=== PATIENT | male | born 1965 | race Caucasian/White ===

== ENCOUNTER 2022-10-02 19:10 | Observation (INO) | payer BC, OTHER ==
[2022-10-02 20:00] LABS: Absolute Neutrophil Ct (ANC) 4.16 x10^3/uL (1.4-6.9); Basophil (Absolute #) 0.06 x10^3/uL (0-0.4); Eosinophil % 1.7 % (0.00-5.0); Eosinophil (Absolute #) 0.11 x10^3/uL (0-0.5); Hematocrit 44.3 % (42-50); Hemoglobin 14.9 g/dL (12.5-18.0); Mean Cell Volume 86.2 fL (78-100); Mean Corpuscular Hgb Concent. 33.6 g/dL (32-36); Mean Platelet Volume 9.5 fL (7.5-11.0); Monocyte (Absolute #) 0.62 x10^3/uL (0.0-1.3); Monocytes % 9.7 % (0.0-12.0); Neutrophil % 65.4 % (36.0-66.0); Platelet Count 330 x10^3/uL (150-450); Red Blood Count 5.14 x10^6/uL (4.1-5.6); Red Cell Distribution Width 12.2 % (11.5-14.0); White Blood Count 6.4 x10^3/uL (4.0-10.5)
[2022-10-02 20:07] LABS: ALBUMIN 4.5 g/dL (3.5-5.0); ALKALINE PHOSPHATASE 90 U/L (38-126); ANION GAP 12.9 MEQ/L (5-15); BLOOD UREA NITROGEN 26 mg/dL (9-20); CHLORIDE 104 mmol/L (98-107); Calcium 9.5 mg/dL (8.4-10.2); Carbon Dioxide 24 mmol/L (22-30); Creatinine 1 0.88 mg/dL (0.66-1.25); EST GLOMERULAR FILTRATION RATE > 60.0 ML/MIN; Glucose 105 mg/dL (74-106); Potassium 4.5 mmol/L (3.5-5.1); SGOT/AST 59 U/L (17-59); SGPT/ALT 84 U/L (0-50); SODIUM 137 mmol/L (137-145)
[2022-10-02] MEDS ORDERED: BABY ASPIRIN 81 MG CHEW PO ONE (20:20)
[2022-10-02] MEDS ORDERED: NITRO-BID 2% UD PACKETS TOP ONE (20:21)
--- NOTE | 2022-10-02 20:24 | ERPHSYRPT ---
- History of Present Illness Time Seen by Provider: 10/02/22 19:20 Historian: patient Exam Limitations: no limitations Patient Subjective Stated Complaint: pt states he has been feeling pain and pressure in chest and back off and on for one week, states he has been feeling a bit short of breath. today the pain is worse and he rates it as 8/10 in chest and back Triage Nursing Assessment: pt arrived in er waiting, was taken back immediatly, 12 lead EKG shows NSR. Pt at this time is stating "my pain is in my back and chest, It's an 8/10. pt is alert and oriented sats are 99% on room air, BP is elevated at 170/107, pt appears anxious, and states the pain is coming and going. Physician History: Patient is a 57-year-old male presents to emergency department for evaluation of chest pain. Chest pain started today although he has been experiencing intermittent chest pain for the past several days. Chest pain tends to radiate to his left shoulder. Chest pain associated with nausea and diaphoresis. Patient states he does not follow-up with a doctor frequently and does not know his cholesterol level. Patient primarily receives his care at the [facility]. Patient also informs me that he is currently experiencing active cancer and is under treatment. Symptoms are intermittent. Symptoms are moderate in intensity. No specific worsening improving factors. Patient voices no other complaints or concerns at this time. Portions of this note were created with voice recognition technology. There may be grammatical, spelling, punctuation or sound alike errors Timing/Duration: today Activities at Onset: none Quality: aching Location: substernal Chest Pain Radiation: arm (Left arm) Severity of Pain-Max: moderate Severity of Pain-Current: mild Modifying Factors: Improves With: nothing Associated Symptoms: nausea, shortness of breath, diaphoresis Prior Chest Pain/Cardiac Workup: no prior chest pain Nitro Today/Relief: no nitro taken today Aspirin Treatment Today: no aspirin today Allergies/Adverse Reactions: No Known Drug Allergies Allergy (Unverified 10/02/22 19:25) Hx Influenza Vaccination/Date Given: No Hx Pneumococcal Vaccination/Date Given: No Travel Risk - International Travel Have you traveled outside of the country in past 3 weeks: No - Coronavirus Screening Are you exhibiting any of the following symptoms?: No Close contact with a COVID-19 positive Pt in past 14-21 Days: No - Vaccine Status Have you recieved a Covid-19 vaccination: Yes 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 - Review of Systems Constitutional: No Symptoms, No Fever, No Chills Eyes: No Symptoms Ears, Nose, & Throat: No Symptoms Respiratory: No Symptoms, No Cough, No Dyspnea Cardiac: No Symptoms, No Chest Pain, No Edema, No Syncope Abdominal/Gastrointestinal: No Symptoms, No Abdominal Pain, No Nausea, No Vomiting, No Diarrhea Genitourinary Symptoms: No Symptoms, No Dysuria Musculoskeletal: No Symptoms, No Back Pain, No Neck Pain Skin: No Symptoms, No Rash Neurological: No Symptoms, No Dizziness, No Focal Weakness, No Sensory Changes Psychological: No Symptoms Endocrine: No Symptoms Hematologic/Lymphatic: No Symptoms Immunological/Allergic: No Symptoms All Other Systems: Reviewed and Negative - Past Medical History Pertinent Past Medical History: Yes Male Reproductive Disorders: Prostate Cancer Other Medical History: has only one kidney - Past Surgical History Past Surgical History: Yes Genitourinary: Kidney Surgery Other Surgical History: kidney stones - Social History Smoking Status: Never smoker Exposure to second hand smoke: No Drug Use: none - Nursing Vital Signs Nursing Vital Signs: Initial Vital Signs Temperature 97.2 F 10/02/22 19:11 Pulse Rate 69 10/02/22 19:11 Respiratory Rate 20 10/02/22 19:11 Blood Pressure 170/107 10/02/22 19:11 O2 Sat by Pulse Oximetry 99 10/02/22 19:11 Pain Scale Pain Intensity 0 - Physical Exam General Appearance: no apparent distress, alert Eye Exam: PERRL/EOMI, eyes nml inspection Ears, Nose, Throat Exam: normal ENT inspection, moist mucous membranes Neck Exam: normal inspection, non-tender, supple, full range of motion Respiratory Exam: normal breath sounds, lungs clear, No respiratory distress Cardiovascular Exam: regular rate/rhythm, normal heart sounds Gastrointestinal/Abdomen Exam: soft, No tenderness, No mass Back Exam: normal inspection, No CVA tenderness, No vertebral tenderness Extremity Exam: normal inspection, normal range of motion Neurologic Exam: alert, oriented x 3, cooperative, normal mood/affect, sensation nml, No motor deficits Skin Exam: normal color, warm, dry SpO2 Interpretation: normal SpO2: 99 O2 Delivery: Room Air - Course Nursing assessment & vital signs reviewed: Yes EKG Interpreted by Me: RATE (60), Sinus Rhythm, NORMAL AXIS, NORMAL INTERVALS - Radiology Exams Chest X-ray Interpretation: Interpreted by me (Negative chest x-ray) - CT Exams Chest CT Interpretation: Tele-radiologist Report (Coronary artery atherosclerotic calcifications. 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 Care 10/02/22 19:56 Active EKG-ER Only STAT Care 10/02/22 19:55 Active IV Insertion STAT Care 10/02/22 19:55 Active Pulse Oximetry (ED) STAT Care 10/02/22 19:55 Active CHEST 1 VIEW (PORTABLE) Stat Exams 10/02/22 19:55 Taken CHEST WITH CONTRAST [CT] Stat Exams 10/02/22 22:10 Taken CBC W DIFF Stat Lab 10/02/22 19:45 Completed CMP Stat Lab 10/02/22 19:45 Completed D-DIMER QUANTITATIVE Stat Lab 10/02/22 20:16 Completed TROPONIN Q4H Lab 10/02/22 19:45 Completed TROPONIN Q4H Lab 10/03/22 00:00 Ordered TROPONIN Q4H Lab 10/03/22 04:00 Ordered UA W/RFX CULTURE Stat Lab 10/02/22 21:36 Completed Transfer Order Routine Transfer 10/02/22 Ordered Medication Summary Discontinued Medications Generic Name Dose Route Start Last Admin Trade Name Kiesha PRN Reason Stop Dose Admin Aspirin 324 mg 10/02/22 20:20 10/02/22 20:33 Aspirin 81 Mg Tab.Chew PO 10/02/22 20:21 324 mg STAT ONE Administration Aspirin Confirm 10/02/22 20:30 Aspirin 81 Mg Tab.Chew Administered 10/02/22 20:31 Dose 324 mg .ROUTE .STK-MED ONE Nitroglycerin 1 gm 10/02/22 20:21 10/02/22 20:33 Nitroglycerin 1 Gm Packet TOP 10/02/22 20:22 1 gm STAT ONE Administration Nitroglycerin Confirm 10/02/22 20:31 Nitroglycerin 1 Gm Packet Administered 10/02/22 20:32 Dose 1 gm .ROUTE .STK-MED ONE Lab/Rad Data: Laboratory Result Diagrams 10/02/22 19:45 10/02/22 19:45 Laboratory Results 10/02/22 10/02/22 10/02/22 Range/Units 21:36 20:40 20:16 WBC (4.0-10.5) x10^3/uL RBC (4.1-5.6) x10^6/uL Hgb (12.5-18.0) g/dL Hct (42-50) % MCV (78-100) fL MCH (26-32) pg MCHC (32-36) g/dL RDW (11.5-14.0) % Plt Count (150-450) x10^3/uL MPV (7.5-11.0) fL Gran % (36.0-66.0) % Immature Gran % (Auto) (0.00-0.4) % Nucleat RBC Rel Count (0.00-0.1) % Eos # (Auto) (0-0.5) x10^3/uL Immature Gran # (Auto) (0.00-0.03) x10^3u/L Absolute Lymphs (auto) (1.0-4.6) x10^3/uL Absolute Monos (auto) (0.0-1.3) x10^3/uL Absolute Nucleated RBC (0.00-0.01) x10^3u/L Lymphocytes % (24.0-44.0) % Monocytes % (0.0-12.0) % Eosinophils % (0.00-5.0) % Basophils % (0.0-0.4) % Absolute Granulocytes (1.4-6.9) x10^3/uL Basophils # (0-0.4) x10^3/uL D-Dimer 0.52 H (0.0-0.50) mg/L Sodium (137-145) mmol/L Potassium (3.5-5.1) mmol/L Chloride (98-107) mmol/L Carbon Dioxide (22-30) mmol/L Anion Gap (5-15) MEQ/L BUN (9-20) mg/dL Creatinine (0.66-1.25) mg/dL Estimated GFR ML/MIN Glucose (74-106) mg/dL Calcium (8.4-10.2) mg/dL Total Bilirubin (0.2-1.3) mg/dL AST (17-59) U/L ALT (0-50) U/L Alkaline Phosphatase (38-126) U/L Troponin I (0.000-0.034) ng/mL Serum Total Protein (6.3-8.2) g/dL Albumin (3.5-5.0) g/dL Urinalys Dipstick Clnc MAIN LAB Urine Color YELLOW (YELLOW) Urine Appearance CLEAR (CLEAR) Urine pH 5.5 (5-6) Ur Specific [place] 1.025 (1.005-1.025) POC Urine Protein Conf NEGATIVE (Negative) Urine Ketones NEGATIVE (NEGATIVE) Urine Nitrite NEGATIVE (NEGATIVE) Urine Bilirubin NEGATIVE (NEGATIVE) Urine Urobilinogen 0.2 (0-1) mg/dL Urine Leukocytes NEGATIVE (NEGATIVE) Urine WBC (Auto) NONE (0-5) /HPF Urine RBC (Auto) NONE (0-2) /HPF U Epithel Cells (Auto) NONE (FEW) /HPF Urine Bacteria (Auto) NONE (NEGATIVE) /HPF Urine RBC NEGATIVE (0-5) Nolberto/ul Urine Mucus (Auto) SLIGHT A (NEGATIVE) /HPF Ur Culture Indicated? NO Urine Glucose NEGATIVE (NEGATIVE) mg/dL Influenza Type A Ag NEGATIVE (NEGATIVE) Influenza Type B Ag NEGATIVE (NEGATIVE) RSV (PCR) NEGATIVE (Negative) SARS-CoV-2 (PCR) NEGATIVE (NEGATIVE) 10/02/22 10/02/22 10/02/22 Range/Units 19:45 19:45 19:45 WBC 6.4 (4.0-10.5) x10^3/uL RBC 5.14 (4.1-5.6) x10^6/uL Hgb 14.9 (12.5-18.0) g/dL Hct 44.3 (42-50) % MCV 86.2 (78-100) fL MCH 29.0 (26-32) pg MCHC 33.6 (32-36) g/dL RDW 12.2 (11.5-14.0) % Plt Count 330 (150-450) x10^3/uL MPV 9.5 (7.5-11.0) fL Gran % 65.4 (36.0-66.0) % Immature Gran % (Auto) 0.3 (0.00-0.4) % Nucleat RBC Rel Count 0.0 (0.00-0.1) % Eos # (Auto) 0.11 (0-0.5) x10^3/uL Immature Gran # (Auto) 0.02 (0.00-0.03) x10^3u/L Absolute Lymphs (auto) 1.40 (1.0-4.6) x10^3/uL Absolute Monos (auto) 0.62 (0.0-1.3) x10^3/uL Absolute Nucleated RBC 0.00 (0.00-0.01) x10^3u/L Lymphocytes % 22.0 L (24.0-44.0) % Monocytes % 9.7 (0.0-12.0) % Eosinophils % 1.7 (0.00-5.0) % Basophils % 0.9 (0.0-0.4) % Absolute Granulocytes 4.16 (1.4-6.9) x10^3/uL Basophils # 0.06 (0-0.4) x10^3/uL D-Dimer (0.0-0.50) mg/L Sodium 137 (137-145) mmol/L Potassium 4.5 (3.5-5.1) mmol/L Chloride 104 (98-107) mmol/L Carbon Dioxide 24 (22-30) mmol/L Anion Gap 12.9 (5-15) MEQ/L BUN 26 H (9-20) mg/dL Creatinine 0.88 (0.66-1.25) mg/dL Estimated GFR > 60.0 ML/MIN Glucose 105 (74-106) mg/dL Calcium 9.5 (8.4-10.2) mg/dL Total Bilirubin 1.20 (0.2-1.3) mg/dL AST 59 (17-59) U/L ALT 84 H (0-50) U/L Alkaline Phosphatase 90 (38-126) U/L Troponin I < 0.012 (0.000-0.034) ng/mL Serum Total Protein 8.0 (6.3-8.2) g/dL Albumin 4.5 (3.5-5.0) g/dL Urinalys Dipstick Clnc Urine Color (YELLOW) Urine Appearance (CLEAR) Urine pH (5-6) Ur Specific [place] (1.005-1.025) POC Urine Protein Conf (Negative) Urine Ketones (NEGATIVE) Urine Nitrite (NEGATIVE) Urine Bilirubin (NEGATIVE) Urine Urobilinogen (0-1) mg/dL Urine Leukocytes (NEGATIVE) Urine WBC (Auto) (0-5) /HPF Urine RBC (Auto) (0-2) /HPF U Epithel Cells (Auto) (FEW) /HPF Urine Bacteria (Auto) (NEGATIVE) /HPF Urine RBC (0-5) Nolberto/ul Urine Mucus (Auto) (NEGATIVE) /HPF Ur Culture Indicated? Urine Glucose (NEGATIVE) mg/dL Influenza Type A Ag (NEGATIVE) Influenza Type B Ag (NEGATIVE) RSV (PCR) (Negative) SARS-CoV-2 (PCR) (NEGATIVE) - Progress Progress: improved Air Movement: good Progress Note: Patient reassessed. Chest pain improved. Due to history of present illness and cardiac risk factors we will admit for ACS. D-dimer positive. CTA chest negative for PE. However significant at coronary atherosclerotic plaque observed. Case discussed with Dr. Abreu who accepts admission to observation. Plan of care discussed with patient. He agrees to admission [facility] for further evaluation and treatment. Portions of this note were created with voice recognition technology. There may be grammatical, spelling, punctuation or sound alike errors 10/03/22 00:02 Blood Culture(s) Obtained: No Antibiotics given: No Discussed with .: Clemente Will see patient in: hospital (observation) Counseled pt/family regarding: lab results, diagnosis, rad results - Departure Departure Disposition: Observation Clinical Impression: Coronary atherosclerosis due to calcified coronary lesion of kash[place] artery, Severe right hydronephrosis , Severe left hydronephrosis, Acute coronary syndrome, Chest pain Condition: Stable Critical Care Time: No Referrals: [facility]OS[facility],'S [Primary Care Provider] - Follow up/PCP as directed
[2022-10-02] MEDS ORDERED: BABY ASPIRIN 81 MG CHEW ONE (20:30)
[2022-10-02] MEDS ORDERED: NITRO-BID 2% UD PACKETS ONE (20:31)
[2022-10-02 21:27] LABS: INFLUENZA A NEGATIVE (NEGATIVE); INFLUENZA B NEGATIVE (NEGATIVE); RESPIRATORY SYNCTIAL VIRUS NEGATIVE (Negative); SARS-CoV-2 Xpert Express NEGATIVE (NEGATIVE)
[2022-10-02 22:11] LABS: Appearance CLEAR (CLEAR); Bilirubin NEGATIVE (NEGATIVE); Dipstick done @ ? MAIN LAB; Glucose NEGATIVE (NEGATIVE); Ketones NEGATIVE (NEGATIVE); Nitrite NEGATIVE (NEGATIVE); Ph 5.5 (5-6); Protein,Urine Dip NEGATIVE (Negative); RBC NEGATIVE Ery/ul (0-5); Specific Gravity 1.025 (1.005-1.025); Urobilinogen 0.2 mg/dL (0-1)
[2022-10-02 22:17] LABS: Mucus SLIGHT /HPF (NEGATIVE)
[2022-10-02 22:19] LABS: Urine Cultured Indicated? NO
[2022-10-03] MEDS ORDERED: TYLENOL 325 MG PO PRN (00:53)
[2022-10-03] MEDS ORDERED: Zofran 4 MG/2 ML VIAL IV PRN (00:53)
[2022-10-03] MEDS ORDERED: MILK OF MAGNESIA 30 ML PO PRN (00:53)
[2022-10-03] MEDS ORDERED: Senokot-S Tablet PO PRN (00:53)
[2022-10-03] MEDS: MAALOX ES 30 ML UNIT DOSE PO PRN ×2 (02:21→06:41)
[2022-10-03 05:19] LABS: Risk Ratio 5.3
--- NOTE | 2022-10-03 08:47 | XRAY ---
Indication: Chest pain and nausea. Elevated d-dimer. Multiple contiguous axial images obtained through the chest using 100 cc Isovue 370 contrast and PE protocol. Comparison: None Good opacification of the pulmonary arteries to include the lobar and segmental branches. No pulmonary embolus. Heart is not enlarged. Aorta minimally arteriosclerotic without aneurysm/dissection. No pathologic mediastinal/hilar lymphadenopathy. Lungs are inflated without suspicious pulmonary mass, infiltrate, or effusion. Bony thorax intact with mild/moderate degenerative changes throughout the spine. Limited upper abdomen demonstrates fatty liver, left renal atrophy with hydronephrosis, and incompletely visualized mild right hydronephrosis. Impression: 1. Negative pulmonary embolus. No acute cardiopulmonary abnormalities. 2. Hydronephrotic kidneys left greater than right with left renal atrophy. Comment: Preliminary interpretation made by C. No critical discrepancy.
--- NOTE | 2022-10-03 08:47 | XRAY ---
Indication: Chest pain. Comparison: None Portable chest inflated and clear. Heart not enlarged. Bony thorax intact with mild degenerative changes. Impression: Nonacute chest.
[2022-10-03 11:21] VITALS: BP 131/64; PULSE 73; O2SAT 95
--- NOTE | 2022-10-03 15:28 | PCM.SSS ---
History of Present Illness - Chief Complaint Chief Complaint: Chest pain for 3-4 hours History of Present Illness: is a 57 year old male.presents to emergency department for evaluation of chest pain. Chest pain started today although he has been experiencing intermittent chest pain for the past several days. Chest pain tends to radiate to his left shoulder. Chest pain associated with nausea and diaphoresis. Patient states he does not follow-up with a doctor frequently and does not know his cholesterol level. Patient primarily receives his care at the [facility]. Patient also informs me that he is currently experiencing active cancer and is under treatment. Symptoms are intermittent. Symptoms are moderate in intensity. No specific worsening improving factors. Patient voices no other complaints or concerns at this time. - Review of Systems Constitutional: No Fever, No Chills Eyes: No Symptoms Ears, Nose, & Throat: No Symptoms Respiratory: No Cough, No Short Of Breath Cardiac: Chest Pain, Other (diaphoresis), No Edema, No Syncope Abdominal/Gastrointestinal: Nausea, No Abdominal Pain, No Vomiting, No Diarrhea Genitourinary Symptoms: No Dysuria Musculoskeletal: No Back Pain, No Neck Pain Skin: No Rash Neurological: No Dizziness, No Focal Weakness, No Sensory Changes Psychological: No Symptoms Endocrine: No Symptoms Hematologic/Lymphatic: No Symptoms Immunological/Allergic: No Symptoms Medications & Allergies Home Medications: Home Medication List Losartan Potassium 50 mg [Cozaar 50 MG] 50 mg PO DAILY 10/03/22 [History Confirmed 10/03/22] Allergies/Adverse Reactions: Allergies Allergy/AdvReac Type Severity Reaction Status Date / Time No Known Drug Allergies Allergy Unverified 10/02/22 19:25 - Past Medical History Past Medical History: Yes Neurological History: No Pertinent History ENT History: No Pertinent History Cardiac History: Hypertension Respiratory History: No Pertinent History Endocrine Medical History: No Pertinent History Musculoskelatal History: No Pertinent History GI Medical History: No Pertinent History History: No Pertinent History Pyscho-Social History: No Pertinent History Male Reproductive Disorders: Prostate Cancer Comment: has only one kidney, prostate CA, - Past Surgical History Past Surgical History: Yes Neuro Surgical History: No Pertinent History Cardiac History: No Pertinent History Respiratory Surgery: No Pertinent History GI Surgical History: No Pertinent History Genitourinary Surgical Hx: Kidney Surgery Musculskeletal Surgical Hx: No Pertinent History Other Surgical History: kidney stones - Social History Smoking Status: Never smoker Exposure to second hand smoke: No Alcohol: Rarely Drug Use: none - Physical Exam Vital Signs: Vital Signs - 24 hr Temp Pulse Resp BP Pulse Ox 10/03/22 11:21 97.7 F 73 20 131/64 95 10/03/22 06:50 97.5 F 70 18 122/68 96 10/03/22 04:00 97.7 F 61 16 129/70 93 L 10/03/22 01:36 97.1 F 67 18 127/77 97 10/03/22 00:04 99 10/03/22 00:00 90 16 125/82 96 10/02/22 23:18 79 18 114/63 98 10/02/22 23:00 71 20 114/63 96 10/02/22 22:00 71 24 128/91 98 10/02/22 21:19 63 18 138/87 98 10/02/22 20:25 97 10/02/22 19:11 97.2 F 69 20 170/107 99 General Appearance: no apparent distress, alert Neurologic Exam: alert, oriented x 3, cooperative, normal mood/affect, nml cerebellar function, nml station & gait, sensation nml, No motor deficits Eye Exam: PERRL/EOMI, eyes nml inspection Ears, Nose, Throat Exam: normal ENT inspection, TMs normal, pharynx normal, moist mucous membranes Neck Exam: normal inspection, non-tender, supple, full range of motion Respiratory Exam: normal breath sounds, lungs clear, No respiratory distress Cardiovascular Exam: regular rate/rhythm, normal heart sounds, normal peripheral pulses Gastrointestinal/Abdomen Exam: soft, normal bowel sounds, No tenderness, No mass Back Exam: normal inspection, normal range of motion, No CVA tenderness, No vertebral tenderness Extremity Exam: normal inspection, normal range of motion, pelvis stable Skin Exam: normal color, warm, dry, No rash Lymphatic Exam: No adenopathy Results - Labs Lab/Micro Results: Lab Results-Last 24 Hours 10/02/22 10/02/22 10/02/22 Range/Units 19:45 19:45 19:45 WBC 6.4 (4.0-10.5) x10^3/uL RBC 5.14 (4.1-5.6) x10^6/uL Hgb 14.9 (12.5-18.0) g/dL Hct 44.3 (42-50) % MCV 86.2 (78-100) fL MCH 29.0 (26-32) pg MCHC 33.6 (32-36) g/dL RDW 12.2 (11.5-14.0) % Plt Count 330 (150-450) x10^3/uL MPV 9.5 (7.5-11.0) fL Gran % 65.4 (36.0-66.0) % Immature Gran % (Auto) 0.3 (0.00-0.4) % Nucleat RBC Rel Count 0.0 (0.00-0.1) % Eos # (Auto) 0.11 (0-0.5) x10^3/uL Immature Gran # (Auto) 0.02 (0.00-0.03) x10^3u/L Absolute Lymphs (auto) 1.40 (1.0-4.6) x10^3/uL Absolute Monos (auto) 0.62 (0.0-1.3) x10^3/uL Absolute Nucleated RBC 0.00 (0.00-0.01) x10^3u/L Lymphocytes % 22.0 L (24.0-44.0) % Monocytes % 9.7 (0.0-12.0) % Eosinophils % 1.7 (0.00-5.0) % Basophils % 0.9 (0.0-0.4) % Absolute Granulocytes 4.16 (1.4-6.9) x10^3/uL Basophils # 0.06 (0-0.4) x10^3/uL D-Dimer (0.0-0.50) mg/L Sodium 137 (137-145) mmol/L Potassium 4.5 (3.5-5.1) mmol/L Chloride 104 (98-107) mmol/L Carbon Dioxide 24 (22-30) mmol/L Anion Gap 12.9 (5-15) MEQ/L BUN 26 H (9-20) mg/dL Creatinine 0.88 (0.66-1.25) mg/dL Estimated GFR > 60.0 ML/MIN Glucose 105 (74-106) mg/dL Calcium 9.5 (8.4-10.2) mg/dL Total Bilirubin 1.20 (0.2-1.3) mg/dL AST 59 (17-59) U/L ALT 84 H (0-50) U/L Alkaline Phosphatase 90 (38-126) U/L Troponin I < 0.012 (0.000-0.034) ng/mL Serum Total Protein 8.0 (6.3-8.2) g/dL Albumin 4.5 (3.5-5.0) g/dL Triglycerides (30-150) mg/dL Cholesterol (50-200) mg/dL LDL Cholesterol (30-100) mg/dL HDL Cholesterol (40-60) mg/dL Heart Disease Risk Ratio Urinalys Dipstick Clnc Urine Color (YELLOW) Urine Appearance (CLEAR) Urine pH (5-6) Ur Specific [place] (1.005-1.025) POC Urine Protein Conf (Negative) Urine Ketones (NEGATIVE) Urine Nitrite (NEGATIVE) Urine Bilirubin (NEGATIVE) Urine Urobilinogen (0-1) mg/dL Urine Leukocytes (NEGATIVE) Urine WBC (Auto) (0-5) /HPF Urine RBC (Auto) (0-2) /HPF U Epithel Cells (Auto) (FEW) /HPF Urine Bacteria (Auto) (NEGATIVE) /HPF Urine RBC (0-5) Nolberto/ul Urine Mucus (Auto) (NEGATIVE) /HPF Ur Culture Indicated? Urine Glucose (NEGATIVE) mg/dL Influenza Type A Ag (NEGATIVE) Influenza Type B Ag (NEGATIVE) RSV (PCR) (Negative) SARS-CoV-2 (PCR) (NEGATIVE) 10/02/22 10/02/22 10/02/22 Range/Units 20:16 20:40 21:36 WBC (4.0-10.5) x10^3/uL RBC (4.1-5.6) x10^6/uL Hgb (12.5-18.0) g/dL Hct (42-50) % MCV (78-100) fL MCH (26-32) pg MCHC (32-36) g/dL RDW (11.5-14.0) % Plt Count (150-450) x10^3/uL MPV (7.5-11.0) fL Gran % (36.0-66.0) % Immature Gran % (Auto) (0.00-0.4) % Nucleat RBC Rel Count (0.00-0.1) % Eos # (Auto) (0-0.5) x10^3/uL Immature Gran # (Auto) (0.00-0.03) x10^3u/L Absolute Lymphs (auto) (1.0-4.6) x10^3/uL Absolute Monos (auto) (0.0-1.3) x10^3/uL Absolute Nucleated RBC (0.00-0.01) x10^3u/L Lymphocytes % (24.0-44.0) % Monocytes % (0.0-12.0) % Eosinophils % (0.00-5.0) % Basophils % (0.0-0.4) % Absolute Granulocytes (1.4-6.9) x10^3/uL Basophils # (0-0.4) x10^3/uL D-Dimer 0.52 H (0.0-0.50) mg/L Sodium (137-145) mmol/L Potassium (3.5-5.1) mmol/L Chloride (98-107) mmol/L Carbon Dioxide (22-30) mmol/L Anion Gap (5-15) MEQ/L BUN (9-20) mg/dL Creatinine (0.66-1.25) mg/dL Estimated GFR ML/MIN Glucose (74-106) mg/dL Calcium (8.4-10.2) mg/dL Total Bilirubin (0.2-1.3) mg/dL AST (17-59) U/L ALT (0-50) U/L Alkaline Phosphatase (38-126) U/L Troponin I (0.000-0.034) ng/mL Serum Total Protein (6.3-8.2) g/dL Albumin (3.5-5.0) g/dL Triglycerides (30-150) mg/dL Cholesterol (50-200) mg/dL LDL Cholesterol (30-100) mg/dL HDL Cholesterol (40-60) mg/dL Heart Disease Risk Ratio Urinalys Dipstick Clnc MAIN LAB Urine Color YELLOW (YELLOW) Urine Appearance CLEAR (CLEAR) Urine pH 5.5 (5-6) Ur Specific [place] 1.025 (1.005-1.025) POC Urine Protein Conf NEGATIVE (Negative) Urine Ketones NEGATIVE (NEGATIVE) Urine Nitrite NEGATIVE (NEGATIVE) Urine Bilirubin NEGATIVE (NEGATIVE) Urine Urobilinogen 0.2 (0-1) mg/dL Urine Leukocytes NEGATIVE (NEGATIVE) Urine WBC (Auto) NONE (0-5) /HPF Urine RBC (Auto) NONE (0-2) /HPF U Epithel Cells (Auto) NONE (FEW) /HPF Urine Bacteria (Auto) NONE (NEGATIVE) /HPF Urine RBC NEGATIVE (0-5) Nolberto/ul Urine Mucus (Auto) SLIGHT A (NEGATIVE) /HPF Ur Culture Indicated? NO Urine Glucose NEGATIVE (NEGATIVE) mg/dL Influenza Type A Ag NEGATIVE (NEGATIVE) Influenza Type B Ag NEGATIVE (NEGATIVE) RSV (PCR) NEGATIVE (Negative) SARS-CoV-2 (PCR) NEGATIVE (NEGATIVE) 10/03/22 10/03/22 10/03/22 Range/Units 00:25 04:40 04:40 WBC (4.0-10.5) x10^3/uL RBC (4.1-5.6) x10^6/uL Hgb (12.5-18.0) g/dL Hct (42-50) % MCV (78-100) fL MCH (26-32) pg MCHC (32-36) g/dL RDW (11.5-14.0) % Plt Count (150-450) x10^3/uL MPV (7.5-11.0) fL Gran % (36.0-66.0) % Immature Gran % (Auto) (0.00-0.4) % Nucleat RBC Rel Count (0.00-0.1) % Eos # (Auto) (0-0.5) x10^3/uL Immature Gran # (Auto) (0.00-0.03) x10^3u/L Absolute Lymphs (auto) (1.0-4.6) x10^3/uL Absolute Monos (auto) (0.0-1.3) x10^3/uL Absolute Nucleated RBC (0.00-0.01) x10^3u/L Lymphocytes % (24.0-44.0) % Monocytes % (0.0-12.0) % Eosinophils % (0.00-5.0) % Basophils % (0.0-0.4) % Absolute Granulocytes (1.4-6.9) x10^3/uL Basophils # (0-0.4) x10^3/uL D-Dimer (0.0-0.50) mg/L Sodium (137-145) mmol/L Potassium (3.5-5.1) mmol/L Chloride (98-107) mmol/L Carbon Dioxide (22-30) mmol/L Anion Gap (5-15) MEQ/L BUN (9-20) mg/dL Creatinine (0.66-1.25) mg/dL Estimated GFR ML/MIN Glucose (74-106) mg/dL Calcium (8.4-10.2) mg/dL Total Bilirubin (0.2-1.3) mg/dL AST (17-59) U/L ALT (0-50) U/L Alkaline Phosphatase (38-126) U/L Troponin I < 0.012 < 0.012 (0.000-0.034) ng/mL Serum Total Protein (6.3-8.2) g/dL Albumin (3.5-5.0) g/dL Triglycerides 152 H (30-150) mg/dL Cholesterol 208 H (50-200) mg/dL LDL Cholesterol 147 H (30-100) mg/dL HDL Cholesterol 39 L (40-60) mg/dL Heart Disease Risk Ratio 5.3 Urinalys Dipstick Clnc Urine Color (YELLOW) Urine Appearance (CLEAR) Urine pH (5-6) Ur Specific [place] (1.005-1.025) POC Urine Protein Conf (Negative) Urine Ketones (NEGATIVE) Urine Nitrite (NEGATIVE) Urine Bilirubin (NEGATIVE) Urine Urobilinogen (0-1) mg/dL Urine Leukocytes (NEGATIVE) Urine WBC (Auto) (0-5) /HPF Urine RBC (Auto) (0-2) /HPF U Epithel Cells (Auto) (FEW) /HPF Urine Bacteria (Auto) (NEGATIVE) /HPF Urine RBC (0-5) Nolberto/ul Urine Mucus (Auto) (NEGATIVE) /HPF Ur Culture Indicated? Urine Glucose (NEGATIVE) mg/dL Influenza Type A Ag (NEGATIVE) Influenza Type B Ag (NEGATIVE) RSV (PCR) (Negative) SARS-CoV-2 (PCR) (NEGATIVE) - Radiology Impressions Radiology Exams & Impressions: Radiology Procedures Category Date Time Status CHEST 1 VIEW (PORTABLE) Stat Exams 10/02/22 19:55 Completed CHEST WITH CONTRAST [CT] Stat Exams 10/02/22 22:[address]/CHEST WITH CONTRAST Indication: Chest pain and nausea. Elevated d-dimer. Multiple contiguous axial images obtained through the chest using 100 cc Isovue 370 contrast and PE protocol. Comparison: None Good opacification of the pulmonary arteries to include the lobar and segmental branches. No pulmonary embolus. Heart is not enlarged. Aorta minimally arteriosclerotic without aneurysm/dissection. No pathologic mediastinal/hilar lymphadenopathy. Lungs are inflated without suspicious pulmonary mass, infiltrate, or effusion. Bony thorax intact with mild/moderate degenerative changes throughout the spine. Limited upper abdomen demonstrates fatty liver, left renal atrophy with hydronephrosis, and incompletely visualized mild right hydronephrosis. Impression: 1. Negative pulmonary embolus. No acute cardiopulmonary abnormalities. 2. Hydronephrotic kidneys left greater than right with left renal atrophy. Assessment/Plan (1) Acute coronary syndrome Status: Acute Assessment & Plan: Chief Complaint Diagnosis ACS Allergies Allergy/AdvReac Type Severity Reaction Status Date / Time No Known Drug Allergies Allergy Unverified 10/02/22 19:25 Vital Signs (Last 24 hours) Temp Pulse Resp BP Pulse Ox 10/03/22 11:21 97.7 F 73 20 131/64 95 10/03/22 06:50 97.5 F 70 18 122/68 96 10/03/22 04:00 97.7 F 61 16 129/70 93 L 10/03/22 01:36 97.1 F 67 18 127/77 97 10/03/22 00:04 99 10/03/22 00:00 90 16 125/82 96 10/02/22 23:18 79 18 114/63 98 10/02/22 23:00 71 20 114/63 96 10/02/22 22:00 71 24 128/91 98 10/02/22 21:19 63 18 138/87 98 10/02/22 20:25 97 10/02/22 19:11 97.2 F 69 20 170/107 99 Home Medications Medication Instructions Recorded Confirmed Last Taken Type Losartan Potassium 50 mg 50 mg PO DAILY 10/03/22 10/03/22 10/02/22 History [Cozaar 50 MG] Current Medications Discontinued Medications Generic Name Dose Route Start Last Admin Trade Name Freq PRN Reason Stop Dose Admin Acetaminophen 650 mg 10/03/22 00:53 10/03/22 01:23 Acetaminophen 325 Mg Tablet PO 11/02/22 00:52 650 mg Q4H PRN PRN Administration PAIN AND/OR FEVER Al Hydrox/Mg Hydrox/Simethicone 30 ml 10/03/22 00:53 10/03/22 06:41 Mag Hydrox/Al Hydrox/Simeth 30 Ml Udcup PO 11/02/22 00:52 30 ml Q4H PRN PRN Administration INDIGESTION Aspirin 324 mg 10/02/22 20:20 10/02/22 20:33 Aspirin 81 Mg Tab.Chew PO 10/02/22 20:21 324 mg STAT ONE Administration Aspirin Confirm 10/02/22 20:30 Aspirin 81 Mg Tab.Chew Administered 10/02/22 20:31 Dose 324 mg .ROUTE .STK-MED ONE Magnesium Hydroxide 30 - 60 ml 10/03/22 00:53 Magnesium Hydroxide 30 Ml Udcup PO 11/02/22 00:52 QDP PRN CONSTIPATION Nitroglycerin 1 gm 10/02/22 20:21 10/02/22 20:33 Nitroglycerin 1 Gm Packet TOP 10/02/22 20:22 1 gm STAT ONE Administration Nitroglycerin Confirm 10/02/22 20:31 Nitroglycerin 1 Gm Packet Administered 10/02/22 20:32 Dose 1 gm .ROUTE .STK-MED ONE Ondansetron HCl 4 mg 10/03/22 00:53 Ondansetron Hcl 4 Mg/2 Ml Vial IV 11/02/22 00:52 Q4H PRN PRN NAUSEA/VOMITING Senna/Docusate Sodium 2 udtab 10/03/22 00:53 Senna/Docusate Sodium 1 Udtab Tablet PO 11/02/22 00:52 BID PRN PRN CONSTIPATION Intake & Output (Last 24 hours) 10/01/22 10/02/22 10/03/22 10/04/22 11:59 11:59 11:59 11:59 Intake Total 600 600 Balance 600 600 Weight 116.5 kg Laboratory Results (Last 24 hours) 10/03/22 10/03/22 10/03/22 04:40 04:40 00:25 WBC RBC Hgb Hct MCV MCH MCHC RDW Plt Count MPV Gran % Immature Gran % (Auto) Nucleat RBC Rel Count Eos # (Auto) Immature Gran # (Auto) Absolute Lymphs (auto) Absolute Monos (auto) Absolute Nucleated RBC Lymphocytes % Monocytes % Eosinophils % Basophils % Absolute Granulocytes Basophils # D-Dimer Sodium Potassium Chloride Carbon Dioxide Anion Gap BUN Creatinine Estimated GFR Glucose Calcium Total Bilirubin AST ALT Alkaline Phosphatase Troponin I < 0.012 < 0.012 Serum Total Protein Albumin Triglycerides 152 H Cholesterol 208 H LDL Cholesterol 147 H HDL Cholesterol 39 L Heart Disease Risk Ratio 5.3 Urinalys Dipstick Clnc Urine Color Urine Appearance Urine pH Ur Specific [place] POC Urine Protein Conf Urine Ketones Urine Nitrite Urine Bilirubin Urine Urobilinogen Urine Leukocytes Urine WBC (Auto) Urine RBC (Auto) U Epithel Cells (Auto) Urine Bacteria (Auto) Urine RBC Urine Mucus (Auto) Ur Culture Indicated? Urine Glucose Influenza Type A Ag Influenza Type B Ag RSV (PCR) SARS-CoV-2 (PCR) 10/02/22 10/02/22 10/02/22 21:36 20:40 20:16 WBC RBC Hgb Hct MCV MCH MCHC RDW Plt Count MPV Gran % Immature Gran % (Auto) Nucleat RBC Rel Count Eos # (Auto) Immature Gran # (Auto) Absolute Lymphs (auto) Absolute Monos (auto) Absolute Nucleated RBC Lymphocytes % Monocytes % Eosinophils % Basophils % Absolute Granulocytes Basophils # D-Dimer 0.52 H Sodium Potassium Chloride Carbon Dioxide Anion Gap BUN Creatinine Estimated GFR Glucose Calcium Total Bilirubin AST ALT Alkaline Phosphatase Troponin I Serum Total Protein Albumin Triglycerides Cholesterol LDL Cholesterol HDL Cholesterol Heart Disease Risk Ratio Urinalys Dipstick Clnc MAIN LAB Urine Color YELLOW Urine Appearance CLEAR Urine pH 5.5 Ur Specific [place] 1.025 POC Urine Protein Conf NEGATIVE Urine Ketones NEGATIVE Urine Nitrite NEGATIVE Urine Bilirubin NEGATIVE Urine Urobilinogen 0.2 Urine Leukocytes NEGATIVE Urine WBC (Auto) NONE Urine RBC (Auto) NONE U Epithel Cells (Auto) NONE Urine Bacteria (Auto) NONE Urine RBC NEGATIVE Urine Mucus (Auto) SLIGHT A Ur Culture Indicated? NO Urine Glucose NEGATIVE Influenza Type A Ag NEGATIVE Influenza Type B Ag NEGATIVE RSV (PCR) NEGATIVE SARS-CoV-2 (PCR) NEGATIVE 10/02/22 10/02/22 10/02/22 19:45 19:45 19:45 WBC 6.4 RBC 5.14 Hgb 14.9 Hct 44.3 MCV 86.2 MCH 29.0 MCHC 33.6 RDW 12.2 Plt Count 330 MPV 9.5 Gran % 65.4 Immature Gran % (Auto) 0.3 Nucleat RBC Rel Count 0.0 Eos # (Auto) 0.11 Immature Gran # (Auto) 0.02 Absolute Lymphs (auto) 1.40 Absolute Monos (auto) 0.62 Absolute Nucleated RBC 0.00 Lymphocytes % 22.0 L Monocytes % 9.7 Eosinophils % 1.7 Basophils % 0.9 Absolute Granulocytes 4.16 Basophils # 0.06 D-Dimer Sodium 137 Potassium 4.5 Chloride 104 Carbon Dioxide 24 Anion Gap 12.9 BUN 26 H Creatinine 0.88 Estimated GFR > 60.0 Glucose 105 Calcium 9.5 Total Bilirubin 1.20 AST 59 ALT 84 H Alkaline Phosphatase 90 Troponin I < 0.012 Serum Total Protein 8.0 Albumin 4.5 Triglycerides Cholesterol LDL Cholesterol HDL Cholesterol Heart Disease Risk Ratio Urinalys Dipstick Clnc Urine Color Urine Appearance Urine pH Ur Specific [place] POC Urine Protein Conf Urine Ketones Urine Nitrite Urine Bilirubin Urine Urobilinogen Urine Leukocytes Urine WBC (Auto) Urine RBC (Auto) U Epithel Cells (Auto) Urine Bacteria (Auto) Urine RBC Urine Mucus (Auto) Ur Culture Indicated? Urine Glucose Influenza Type A Ag Influenza Type B Ag RSV (PCR) SARS-CoV-2 (PCR) Orders (Last 24 hours) Category Date Time Status Bedrest with BRP/BSC ROUTINE Activity 10/03/22 00:53 Completed Metal Bumper STAT Care 10/02/22 19:56 Completed Code Status Order ROUTINE Care 10/03/22 00:53 Completed EKG-ER Only STAT Care 10/02/22 19:55 Completed IV Care Q6H Care 10/03/22 00:53 Completed IV Insertion STAT Care 10/02/22 19:55 Completed Implement Chest Pain Pathway ROUTINE Care 10/03/22 00:[address] in Observation ROUTINE Care 10/03/22 00:53 Completed Pulse Oximetry (ED) STAT Care 10/02/22 19:55 Completed David Kitch[place], Apply ROUTINE Care 10/03/22 00:53 Completed Telemetry q6h Care 10/03/22 00:53 Completed Weight,Daily 0600 Care 10/03/22 00:53 Completed Discharge Routine Discharge 10/03/22 Ordered CHEST 1 VIEW (PORTABLE) Stat Exams 10/02/22 19:55 Completed CHEST WITH CONTRAST [CT] Stat Exams 10/02/22 22:10 Completed CBC W DIFF Stat Lab 10/02/22 19:45 Completed CMP Stat Lab 10/02/22 19:45 Completed COVID/FLU/RSV Panel Stat Lab 10/02/22 20:40 Completed D-DIMER QUANTITATIVE Stat Lab 10/02/22 20:16 Completed LIPID PROFILE AM.LAB Lab 10/03/22 04:40 Completed TROPONIN Q4H Lab 10/02/22 19:45 Completed TROPONIN Q4H Lab 10/03/22 00:25 Completed TROPONIN Q4H Lab 10/03/22 04:40 Completed UA W/RFX CULTURE Stat Lab 10/02/22 21:36 Completed Acetaminophen 325 mg [Tylenol 325 mg] Med 10/03/22 00:53 Discontinued 650 mg PO Q4H PRN PRN Aspirin 81 gm Chew [Baby Aspirin 81 mg Chew] Med 10/02/22 20:30 Discontinued 324 mg .ROUTE .STK-MED ONE Aspirin 81 gm Chew [Baby Aspirin 81 mg Chew] Med 10/02/22 20:20 Discontinued 324 mg PO STAT ONE Mag Hydrox/Al Hydrox/Simeth [Maalox Es 30 ml Unit Med 10/03/22 00:53 Discontinued Dose] 30 ml PO Q4H PRN PRN Magnesium Hydroxide 30 ml [Milk of Magnesia 30 ml Med 10/03/22 00:53 Discontinued ] 30 - 60 ml PO QDP PRN Nitroglycerin 2 %Ointment [Nitro-Bid 2% Ud Packets Med 10/02/22 20:31 Discontinued *] 1 gm .ROUTE .STK-MED ONE Nitroglycerin 2 %Ointment [Nitro-Bid 2% Ud Packets Med 10/02/22 20:21 Discontinued *] 1 gm TOP STAT ONE Ondansetron HCl 4 mg/2 ml [Zofran 4 MG/2 ML VIAL] Med 10/03/22 00:53 Discontinued 4 mg IV Q4H PRN PRN Senna/Docusate Sodium Tab [Senokot-S Tablet] Med 10/03/22 00:53 Discontinued 2 udtab PO BID PRN PRN EKG DAILY RT 10/04/22 05:00 Completed EKG DAILY RT 10/05/22 05:00 Completed EKG DAILY RT 10/06/22 05:00 Completed EKG Q8HX2,QAMX3,PRN RT 10/03/22 00:53 Completed EKG ROUTINE RT 10/03/22 03:55 Completed Pulse Oximetry Q4H RT 10/03/22 00:53 Completed Patient Care Notes (Last 24 hours) 10/03/22 12:31 (created 10/03/22 12:46) Nursing Note by Marianne Angulo FAXED DC RECORDS TO DR. LEBLANC OFFICE Initialized on 10/03/22 12:46 - END OF NOTE 10/03/22 12:06 Nursing Note by Loretta Oscar ROUNDING WITH DR RODRIGUEZ, ORDERS RECIEVED TO D/C PT, TAKE 81 MG ASPIRIN DAILY, HOLD LIPITOR, AND NO HEAVY LIFTING OR STREUOUS ACTVITY, PT MAY RETURN TO WORK HAS FOLLOW UP APPOINTMENT WITH DR YOBANY SCHAEFFER SCHEDULED FOR 10/11/2022 AT 1315, AND FOLLOW UP APPOINMENT WITH DR RODRIGUEZ ON 10/10/2022 AT 1100. Initialized on 10/03/22 12:06 - END OF NOTE Code(s): I24.9 - ACUTE ISCHEMIC HEART DISEASE, UNSPECIFIED (2) Chest pain Status: Acute Qualifiers: Chest pain type: chest pain due to myocardial ischemia Ischemic chest pain type: unspecified angina pectoris type Qualified Code(s): I25.9 - Chronic ischemic heart disease, unspecified Code(s): R07.9 - CHEST PAIN, UNSPECIFIED (3) Coronary atherosclerosis due to calcified coronary lesion of [place] artery Status: Acute Code(s): I25.10 - ATHSCL HEART DISEASE OF [place] CORONARY ARTERY W/O ANG PCTRS; I25.84 - CORONARY ATHEROSCLEROSIS DUE TO CALCIFIED CORONARY LESION Hospital Summary - Hospital Course Hospital Course: Chief Complaint Diagnosis ACS Allergies Allergy/AdvReac Type Severity Reaction Status Date / Time No Known Drug Allergies Allergy Unverified 10/02/22 19:25 Vital Signs (Last 24 hours) Temp Pulse Resp BP Pulse Ox 10/03/22 11:21 97.7 F 73 20 131/64 95 10/03/22 06:50 97.5 F 70 18 122/68 96 10/03/22 04:00 97.7 F 61 16 129/70 93 L 10/03/22 01:36 97.1 F 67 18 127/77 97 10/03/22 00:04 99 10/03/22 00:00 90 16 125/82 96 10/02/22 23:18 79 18 114/63 98 10/02/22 23:00 71 20 114/63 96 10/02/22 22:00 71 24 128/91 98 10/02/22 21:19 63 18 138/87 98 10/02/22 20:25 97 10/02/22 19:11 97.2 F 69 20 170/107 99 Home Medications Medication Instructions Recorded Confirmed Last Taken Type Losartan Potassium 50 mg 50 mg PO DAILY 10/03/22 10/03/22 10/02/22 History [Cozaar 50 MG] Current Medications Discontinued Medications Generic Name Dose Route Start Last Admin Trade Name Freq PRN Reason Stop Dose Admin Acetaminophen 650 mg 10/03/22 00:53 10/03/22 01:23 Acetaminophen 325 Mg Tablet PO 11/02/22 00:52 650 mg Q4H PRN PRN Administration PAIN AND/OR FEVER Al Hydrox/Mg Hydrox/Simethicone 30 ml 10/03/22 00:53 10/03/22 06:41 Mag Hydrox/Al Hydrox/Simeth 30 Ml Udcup PO 11/02/22 00:52 30 ml Q4H PRN PRN Administration INDIGESTION Aspirin 324 mg 10/02/22 20:20 10/02/22 20:33 Aspirin 81 Mg Tab.Chew PO 10/02/22 20:21 324 mg STAT ONE Administration Aspirin Confirm 10/02/22 20:30 Aspirin 81 Mg Tab.Chew Administered 10/02/22 20:31 Dose 324 mg .ROUTE .STK-MED ONE Magnesium Hydroxide 30 - 60 ml 10/03/22 00:53 Magnesium Hydroxide 30 Ml Udcup PO 11/02/22 00:52 QDP PRN CONSTIPATION Nitroglycerin 1 gm 10/02/22 20:21 10/02/22 20:33 Nitroglycerin 1 Gm Packet TOP 10/02/22 20:22 1 gm STAT ONE Administration Nitroglycerin Confirm 10/02/22 20:31 Nitroglycerin 1 Gm Packet Administered 10/02/22 20:32 Dose 1 gm .ROUTE .STK-MED ONE Ondansetron HCl 4 mg 10/03/22 00:53 Ondansetron Hcl 4 Mg/2 Ml Vial IV 11/02/22 00:52 Q4H PRN PRN NAUSEA/VOMITING Senna/Docusate Sodium 2 udtab 10/03/22 00:53 Senna/Docusate Sodium 1 Udtab Tablet PO 11/02/22 00:52 BID PRN PRN CONSTIPATION Intake & Output (Last 24 hours) 10/01/22 10/02/22 10/03/22 10/04/22 11:59 11:59 11:59 11:59 Intake Total 600 600 Balance 600 600 Weight 116.5 kg Laboratory Results (Last 24 hours) 10/03/22 10/03/22 10/03/22 04:40 04:40 00:25 WBC RBC Hgb Hct MCV MCH MCHC RDW Plt Count MPV Gran % Immature Gran % (Auto) Nucleat RBC Rel Count Eos # (Auto) Immature Gran # (Auto) Absolute Lymphs (auto) Absolute Monos (auto) Absolute Nucleated RBC Lymphocytes % Monocytes % Eosinophils % Basophils % Absolute Granulocytes Basophils # D-Dimer Sodium Potassium Chloride Carbon Dioxide Anion Gap BUN Creatinine Estimated GFR Glucose Calcium Total Bilirubin AST ALT Alkaline Phosphatase Troponin I < 0.012 < 0.012 Serum Total Protein Albumin Triglycerides 152 H Cholesterol 208 H LDL Cholesterol 147 H HDL Cholesterol 39 L Heart Disease Risk Ratio 5.3 Urinalys Dipstick Clnc Urine Color Urine Appearance Urine pH Ur Specific Seale POC Urine Protein Conf Urine Ketones Urine Nitrite Urine Bilirubin Urine Urobilinogen Urine Leukocytes Urine WBC (Auto) Urine RBC (Auto) U Epithel Cells (Auto) Urine Bacteria (Auto) Urine RBC Urine Mucus (Auto) Ur Culture Indicated? Urine Glucose Influenza Type A Ag Influenza Type B Ag RSV (PCR) SARS-CoV-2 (PCR) 10/02/22 10/02/22 10/02/22 21:36 20:40 20:16 WBC RBC Hgb Hct MCV MCH MCHC RDW Plt Count MPV Gran % Immature Gran % (Auto) Nucleat RBC Rel Count Eos # (Auto) Immature Gran # (Auto) Absolute Lymphs (auto) Absolute Monos (auto) Absolute Nucleated RBC Lymphocytes % Monocytes % Eosinophils % Basophils % Absolute Granulocytes Basophils # D-Dimer 0.52 H Sodium Potassium Chloride Carbon Dioxide Anion Gap BUN Creatinine Estimated GFR Glucose Calcium Total Bilirubin AST ALT Alkaline Phosphatase Troponin I Serum Total Protein Albumin Triglycerides Cholesterol LDL Cholesterol HDL Cholesterol Heart Disease Risk Ratio Urinalys Dipstick Clnc MAIN LAB Urine Color YELLOW Urine Appearance CLEAR Urine pH 5.5 Ur Specific Seale 1.025 POC Urine Protein Conf NEGATIVE Urine Ketones NEGATIVE Urine Nitrite NEGATIVE Urine Bilirubin NEGATIVE Urine Urobilinogen 0.2 Urine Leukocytes NEGATIVE Urine WBC (Auto) NONE Urine RBC (Auto) NONE U Epithel Cells (Auto) NONE Urine Bacteria (Auto) NONE Urine RBC NEGATIVE Urine Mucus (Auto) SLIGHT A Ur Culture Indicated? NO Urine Glucose NEGATIVE Influenza Type A Ag NEGATIVE Influenza Type B Ag NEGATIVE RSV (PCR) NEGATIVE SARS-CoV-2 (PCR) NEGATIVE 10/02/22 10/02/22 10/02/22 19:45 19:45 19:45 WBC 6.4 RBC 5.14 Hgb 14.9 Hct 44.3 MCV 86.2 MCH 29.0 MCHC 33.6 RDW 12.2 Plt Count 330 MPV 9.5 Gran % 65.4 Immature Gran % (Auto) 0.3 Nucleat RBC Rel Count 0.0 Eos # (Auto) 0.11 Immature Gran # (Auto) 0.02 Absolute Lymphs (auto) 1.40 Absolute Monos (auto) 0.62 Absolute Nucleated RBC 0.00 Lymphocytes % 22.0 L Monocytes % 9.7 Eosinophils % 1.7 Basophils % 0.9 Absolute Granulocytes 4.16 Basophils # 0.06 D-Dimer Sodium 137 Potassium 4.5 Chloride 104 Carbon Dioxide 24 Anion Gap 12.9 BUN 26 H Creatinine 0.88 Estimated GFR > 60.0 Glucose 105 Calcium 9.5 Total Bilirubin 1.20 AST 59 ALT 84 H Alkaline Phosphatase 90 Troponin I < 0.012 Serum Total Protein 8.0 Albumin 4.5 Triglycerides Cholesterol LDL Cholesterol HDL Cholesterol Heart Disease Risk Ratio Urinalys Dipstick Clnc Urine Color Urine Appearance Urine pH Ur Specific Seale POC Urine Protein Conf Urine Ketones Urine Nitrite Urine Bilirubin Urine Urobilinogen Urine Leukocytes Urine WBC (Auto) Urine RBC (Auto) U Epithel Cells (Auto) Urine Bacteria (Auto) Urine RBC Urine Mucus (Auto) Ur Culture Indicated? Urine Glucose Influenza Type A Ag Influenza Type B Ag RSV (PCR) SARS-CoV-2 (PCR) Orders (Last 24 hours) Category Date Time Status Bedrest with BRP/BSC ROUTINE Activity 10/03/22 00:53 Completed Metal Bumper STAT Care 10/02/22 19:56 Completed Code Status Order ROUTINE Care 10/03/22 00:53 Completed EKG-ER Only STAT Care 10/02/22 19:55 Completed IV Care Q6H Care 10/03/22 00:53 Completed IV Insertion STAT Care 10/02/22 19:55 Completed Implement Chest Pain Pathway ROUTINE Care 10/03/22 00:[address] in Observation ROUTINE Care 10/03/22 00:53 Completed Pulse Oximetry (ED) STAT Care 10/02/22 19:55 Completed David Kitchen, Apply ROUTINE Care 10/03/22 00:53 Completed Telemetry q6h Care 10/03/22 00:53 Completed Weight,Daily 0600 Care 10/03/22 00:53 Completed Discharge Routine Discharge 10/03/22 Ordered CHEST 1 VIEW (PORTABLE) Stat Exams 10/02/22 19:55 Completed CHEST WITH CONTRAST [CT] Stat Exams 10/02/22 22:10 Completed CBC W DIFF Stat Lab 10/02/22 19:45 Completed CMP Stat Lab 10/02/22 19:45 Completed COVID/FLU/RSV Panel Stat Lab 10/02/22 20:40 Completed D-DIMER QUANTITATIVE Stat Lab 10/02/22 20:16 Completed LIPID PROFILE AM.LAB Lab 10/03/22 04:40 Completed TROPONIN Q4H Lab 10/02/22 19:45 Completed TROPONIN Q4H Lab 10/03/22 00:25 Completed TROPONIN Q4H Lab 10/03/22 04:40 Completed UA W/RFX CULTURE Stat Lab 10/02/22 21:36 Completed Acetaminophen 325 mg [Tylenol 325 mg] Med 10/03/22 00:53 Discontinued 650 mg PO Q4H PRN PRN Aspirin 81 gm Chew [Baby Aspirin 81 mg Chew] Med 10/02/22 20:30 Discontinued 324 mg .ROUTE .STK-MED ONE Aspirin 81 gm Chew [Baby Aspirin 81 mg Chew] Med 10/02/22 20:20 Discontinued 324 mg PO STAT ONE Mag Hydrox/Al Hydrox/Simeth [Maalox Es 30 ml Unit Med 10/03/22 00:53 Discontinued Dose] 30 ml PO Q4H PRN PRN Magnesium Hydroxide 30 ml [Milk of Magnesia 30 ml Med 10/03/22 00:53 Discontinued ] 30 - 60 ml PO QDP PRN Nitroglycerin 2 %Ointment [Nitro-Bid 2% Ud Packets Med 10/02/22 20:31 Discontinued *] 1 gm .ROUTE .STK-MED ONE Nitroglycerin 2 %Ointment [Nitro-Bid 2% Ud Packets Med 10/02/22 20:21 Discontinued *] 1 gm TOP STAT ONE Ondansetron HCl 4 mg/2 ml [Zofran 4 MG/2 ML VIAL] Med 10/03/22 00:53 Dis continued 4 mg IV Q4H PRN PRN Senna/Docusate Sodium Tab [Senokot-S Tablet] Med 10/03/22 00:53 Discontinued 2 udtab PO BID PRN PRN EKG DAILY RT 10/04/22 05:00 Completed EKG DAILY RT 10/05/22 05:00 Completed EKG DAILY RT 10/06/22 05:00 Completed EKG Q8HX2,QAMX3,PRN RT 10/03/22 00:53 Completed EKG ROUTINE RT 10/03/22 03:55 Completed Pulse Oximetry Q4H RT 10/03/22 00:53 Completed Patient Care Notes (Last 24 hours) 10/03/22 12:31 (created 10/03/22 12:46) Nursing Note by Marianne Angulo FAXED DC RECORDS TO DR. LEBLANC OFFICE Initialized on 10/03/22 12:46 - END OF NOTE 10/03/22 12:06 Nursing Note by Loretta Oscar ROUNDING WITH DR RODRIGUEZ, ORDERS RECIEVED TO D/C PT, TAKE 81 MG ASPIRIN DAILY, HOLD LIPITOR, AND NO HEAVY LIFTING OR STREUOUS ACTVITY, PT MAY RETURN TO WORK HAS FOLLOW UP APPOINTMENT WITH DR YOBANY SCHAEFFER SCHEDULED FOR 10/11/2022 AT 1315, AND FOLLOW UP APPOINMENT WITH DR RODRIGUEZ ON 10/10/2022 AT 1100. Initialized on 10/03/22 12:06 - END OF NOTE - Vitals & Intake/Output Vital Signs: Vital Signs Temperature 97.7 F 10/03/22 11:21 Pulse Rate 73 10/03/22 11:21 Respiratory Rate 20 10/03/22 11:21 Blood Pressure 131/64 10/03/22 11:21 O2 Sat by Pulse Oximetry 95 10/03/22 11:21 Intake & Output: Intake & Output 10/01/22 10/02/22 10/03/22 10/04/22 11:59 11:59 11:59 11:59 Intake Total 600 600 Balance 600 600 Weight 116.5 kg - Lab Result Diagrams: 10/02/22 19:45 10/02/22 19:45 Lab Results-Last 24 Hrs: Lab Results-Last 24 Hours 10/02/22 10/02/22 10/02/22 Range/Units 19:45 19:45 19:45 WBC 6.4 (4.0-10.5) x10^3/uL RBC 5.14 (4.1-5.6) x10^6/uL Hgb 14.9 (12.5-18.0) g/dL Hct 44.3 (42-50) % MCV 86.2 (78-100) fL MCH 29.0 (26-32) pg MCHC 33.6 (32-36) g/dL RDW 12.2 (11.5-14.0) % Plt Count 330 (150-450) x10^3/uL MPV 9.5 (7.5-11.0) fL Gran % 65.4 (36.0-66.0) % Immature Gran % (Auto) 0.3 (0.00-0.4) % Nucleat RBC Rel Count 0.0 (0.00-0.1) % Eos # (Auto) 0.11 (0-0.5) x10^3/uL Immature Gran # (Auto) 0.02 (0.00-0.03) x10^3u/L Absolute Lymphs (auto) 1.40 (1.0-4.6) x10^3/uL Absolute Monos (auto) 0.62 (0.0-1.3) x10^3/uL Absolute Nucleated RBC 0.00 (0.00-0.01) x10^3u/L Lymphocytes % 22.0 L (24.0-44.0) % Monocytes % 9.7 (0.0-12.0) % Eosinophils % 1.7 (0.00-5.0) % Basophils % 0.9 (0.0-0.4) % Absolute Granulocytes 4.16 (1.4-6.9) x10^3/uL Basophils # 0.06 (0-0.4) x10^3/uL D-Dimer (0.0-0.50) mg/L Sodium 137 (137-145) mmol/L Potassium 4.5 (3.5-5.1) mmol/L Chloride 104 (98-107) mmol/L Carbon Dioxide 24 (22-30) mmol/L Anion Gap 12.9 (5-15) MEQ/L BUN 26 H (9-20) mg/dL Creatinine 0.88 (0.66-1.25) mg/dL Estimated GFR > 60.0 ML/MIN Glucose 105 (74-106) mg/dL Calcium 9.5 (8.4-10.2) mg/dL Total Bilirubin 1.20 (0.2-1.3) mg/dL AST 59 (17-59) U/L ALT 84 H (0-50) U/L Alkaline Phosphatase 90 (38-126) U/L Troponin I < 0.012 (0.000-0.034) ng/mL Serum Total Protein 8.0 (6.3-8.2) g/dL Albumin 4.5 (3.5-5.0) g/dL Triglycerides (30-150) mg/dL Cholesterol (50-200) mg/dL LDL Cholesterol (30-100) mg/dL HDL Cholesterol (40-60) mg/dL Heart Disease Risk Ratio Urinalys Dipstick Clnc Urine Color (YELLOW) Urine Appearance (CLEAR) Urine pH (5-6) Ur Specific Seale (1.005-1.025) POC Urine Protein Conf (Negative) Urine Ketones (NEGATIVE) Urine Nitrite (NEGATIVE) Urine Bilirubin (NEGATIVE) Urine Urobilinogen (0-1) mg/dL Urine Leukocytes (NEGATIVE) Urine WBC (Auto) (0-5) /HPF Urine RBC (Auto) (0-2) /HPF U Epithel Cells (Auto) (FEW) /HPF Urine Bacteria (Auto) (NEGATIVE) /HPF Urine RBC (0-5) Nolberto/ul Urine Mucus (Auto) (NEGATIVE) /HPF Ur Culture Indicated? Urine Glucose (NEGATIVE) mg/dL Influenza Type A Ag (NEGATIVE) Influenza Type B Ag (NEGATIVE) RSV (PCR) (Negative) SARS-CoV-2 (PCR) (NEGATIVE) 10/02/22 10/02/22 10/02/22 Range/Units 20:16 20:40 21:36 WBC (4.0-10.5) x10^3/uL RBC (4.1-5.6) x10^6/uL Hgb (12.5-18.0) g/dL Hct (42-50) % MCV (78-100) fL MCH (26-32) pg MCHC (32-36) g/dL RDW (11.5-14.0) % Plt Count (150-450) x10^3/uL MPV (7.5-11.0) fL Gran % (36.0-66.0) % Immature Gran % (Auto) (0.00-0.4) % Nucleat RBC Rel Count (0.00-0.1) % Eos # (Auto) (0-0.5) x10^3/uL Immature Gran # (Auto) (0.00-0.03) x10^3u/L Absolute Lymphs (auto) (1.0-4.6) x10^3/uL Absolute Monos (auto) (0.0-1.3) x10^3/uL Absolute Nucleated RBC (0.00-0.01) x10^3u/L Lymphocytes % (24.0-44.0) % Monocytes % (0.0-12.0) % Eosinophils % (0.00-5.0) % Basophils % (0.0-0.4) % Absolute Granulocytes (1.4-6.9) x10^3/uL Basophils # (0-0.4) x10^3/uL D-Dimer 0.52 H (0.0-0.50) mg/L Sodium (137-145) mmol/L Potassium (3.5-5.1) mmol/L Chloride (98-107) mmol/L Carbon Dioxide (22-30) mmol/L Anion Gap (5-15) MEQ/L BUN (9-20) mg/dL Creatinine (0.66-1.25) mg/dL Estimated GFR ML/MIN Glucose (74-106) mg/dL Calcium (8.4-10.2) mg/dL Total Bilirubin (0.2-1.3) mg/dL AST (17-59) U/L ALT (0-50) U/L Alkaline Phosphatase (38-126) U/L Troponin I (0.000-0.034) ng/mL Serum Total Protein (6.3-8.2) g/dL Albumin (3.5-5.0) g/dL Triglycerides (30-150) mg/dL Cholesterol (50-200) mg/dL LDL Cholesterol (30-100) mg/dL HDL Cholesterol (40-60) mg/dL Heart Disease Risk Ratio Urinalys Dipstick Clnc MAIN LAB Urine Color YELLOW (YELLOW) Urine Appearance CLEAR (CLEAR) Urine pH 5.5 (5-6) Ur Specific Seale 1.025 (1.005-1.025) POC Urine Protein Conf NEGATIVE (Negative) Urine Ketones NEGATIVE (NEGATIVE) Urine Nitrite NEGATIVE (NEGATIVE) Urine Bilirubin NEGATIVE (NEGATIVE) Urine Urobilinogen 0.2 (0-1) mg/dL Urine Leukocytes NEGATIVE (NEGATIVE) Urine WBC (Auto) NONE (0-5) /HPF Urine RBC (Auto) NONE (0-2) /HPF U Epithel Cells (Auto) NONE (FEW) /HPF Urine Bacteria (Auto) NONE (NEGATIVE) /HPF Urine RBC NEGATIVE (0-5) Nolberto/ul Urine Mucus (Auto) SLIGHT A (NEGATIVE) /HPF Ur Culture Indicated? NO Urine Glucose NEGATIVE (NEGATIVE) mg/dL Influenza Type A Ag NEGATIVE (NEGATIVE) Influenza Type B Ag NEGATIVE (NEGATIVE) RSV (PCR) NEGATIVE (Negative) SARS-CoV-2 (PCR) NEGATIVE (NEGATIVE) 10/03/22 10/03/22 10/03/22 Range/Units 00:25 04:40 04:40 WBC (4.0-10.5) x10^3/uL RBC (4.1-5.6) x10^6/uL Hgb (12.5-18.0) g/dL Hct (42-50) % MCV (78-100) fL MCH (26-32) pg MCHC (32-36) g/dL RDW (11.5-14.0) % Plt Count (150-450) x10^3/uL MPV (7.5-11.0) fL Gran % (36.0-66.0) % Immature Gran % (Auto) (0.00-0.4) % Nucleat RBC Rel Count (0.00-0.1) % Eos # (Auto) (0-0.5) x10^3/uL Immature Gran # (Auto) (0.00-0.03) x10^3u/L Absolute Lymphs (auto) (1.0-4.6) x10^3/uL Absolute Monos (auto) (0.0-1.3) x10^3/uL Absolute Nucleated RBC (0.00-0.01) x10^3u/L Lymphocytes % (24.0-44.0) % Monocytes % (0.0-12.0) % Eosinophils % (0.00-5.0) % Basophils % (0.0-0.4) % Absolute Granulocytes (1.4-6.9) x10^3/uL Basophils # (0-0.4) x10^3/uL D-Dimer (0.0-0.50) mg/L Sodium (137-145) mmol/L Potassium (3.5-5.1) mmol/L Chloride (98-107) mmol/L Carbon Dioxide (22-30) mmol/L Anion Gap (5-15) MEQ/L BUN (9-20) mg/dL Creatinine (0.66-1.25) mg/dL Estimated GFR ML/MIN Glucose (74-106) mg/dL Calcium (8.4-10.2) mg/dL Total Bilirubin (0.2-1.3) mg/dL AST (17-59) U/L ALT (0-50) U/L Alkaline Phosphatase (38-126) U/L Troponin I < 0.012 < 0.012 (0.000-0.034) ng/mL Serum Total Protein (6.3-8.2) g/dL Albumin (3.5-5.0) g/dL Triglycerides 152 H (30-150) mg/dL Cholesterol 208 H (50-200) mg/dL LDL Cholesterol 147 H (30-100) mg/dL HDL Cholesterol 39 L (40-60) mg/dL Heart Disease Risk Ratio 5.3 Urinalys Dipstick Clnc Urine Color (YELLOW) Urine Appearance (CLEAR) Urine pH (5-6) Ur Specific Seale (1.005-1.025) POC Urine Protein Conf (Negative) Urine Ketones (NEGATIVE) Urine Nitrite (NEGATIVE) Urine Bilirubin (NEGATIVE) Urine Urobilinogen (0-1) mg/dL Urine Leukocytes (NEGATIVE) Urine WBC (Auto) (0-5) /HPF Urine RBC (Auto) (0-2) /HPF U Epithel Cells (Auto) (FEW) /HPF Urine Bacteria (Auto) (NEGATIVE) /HPF Urine RBC (0-5) Nolberto/ul Urine Mucus (Auto) (NEGATIVE) /HPF Ur Culture Indicated? Urine Glucose (NEGATIVE) mg/dL Influenza Type A Ag (NEGATIVE) Influenza Type B Ag (NEGATIVE) RSV (PCR) (Negative) SARS-CoV-2 (PCR) (NEGATIVE) - Radiology Exams Ordered Rad Exams-Entire Visit: Radiology Procedures Category Date Time Status CHEST 1 VIEW (PORTABLE) Stat Exams 10/02/22 19:55 Completed CHEST WITH CONTRAST [CT] Stat Exams 10/02/22 22:10 Completed - Procedures and Test Procedures and Tests throughout Hospitalization: Therapy Orders & Screens 10/03/22 00:53 EKG Q8HX2,QAMX3,PRN Comment: 10/03/22 03:55 EKG ROUTINE Comment: Diagnosis: ACS 10/04/22 05:00 EKG DAILY Comment: Diagnosis: ACS 10/05/22 05:00 EKG DAILY Comment: Diagnosis: ACS 10/06/22 05:00 EKG DAILY Comment: Diagnosis: ACS - Discharge Discharge Date: 10/03/22 Disposition: Home, Self-Care Condition: Stable Prescriptions: No Action Losartan Potassium 50 mg [Cozaar 50 MG] 50 mg PO DAILY Instructions: Chest Pain (DC) Additional Instructions: TAKE AN 81 MG DAILY AND STOP TAKING YOUR LIPITOR TILL YOU SEE DR RODRIGUEZ IN THE OFFICE NO HEAVY LIFTING OR STRENUOUS ACTIVITY Follow up with: YOBANY LEBLANC [CONSULTING PHYSICIAN] - 10/11/22 1:15 pm ([place] OFFICE) KARYNA RODRIGUEZ MD [ACTIVE STAFF] - 10/10/22 11:00 am ([place] OFFICE) Forms: Discharge Instructions, Work/School Release Form
== END 2022-10-03 14:29 | disposition home or self-care (01) ==
LOC: ED 19:10 → MERGE 10-03 00:48 → MED SURG 10-03 00:48
PROVIDERS: ADMIT General Practice; ATTEND General Practice
DX: I24.9 Acute ischemic heart disease, unspecified (principal); R07.9 Chest pain, unspecified; I25.10 Atherosclerotic heart disease of native coronary artery without angina pectoris; I25.84 Coronary atherosclerosis due to calcified coronary lesion; I10 Essential (primary) hypertension; C61 Malignant neoplasm of prostate; Z79.899 Other long term (current) drug therapy; Z20.828 Contact with and (suspected) exposure to other viral communicable diseases
CPT/HCPCS: 0241U; 36000; 36415; 71045; 71260; 80053; 80061; 81015; 83721; 84484; 85025; 85379; 93005; 93041; 94760; 93268; 99285; A9270-GY; G0378